=== PATIENT | male | born 1975 | race Caucasian/White ===

== ENCOUNTER 2016-10-13 12:35 | Emergency (ER) | payer BC ==
[~2016-10-13] VITALS: Wt 72.0 kg
[2016-10-13] MEDS ORDERED: KETOROLAC 60 MG INJ IM STA (13:17)
--- NOTE | 2016-10-13 14:33 | RADRPT ---
PROCEDURE: XR Knee. CLINICAL INDICATION: Trauma TECHNIQUE: Three views of the left knee are available for review. COMPARISON: None available FINDINGS: The medial and lateral femorotibial compartments are preserved, as is the patellofemoral compartment . There is no acute osseous abnormality, marginal erosion or evidence of fracture. Small joint effu jefe. IMPRESSION: 1. No acute osseous abnormality. 2. Small joint effusion. RPTAT: UU .Enrico Morataya MD, MD Date Time Electronically viewed and signed by .Enrico Morataya MD, MD on 10/13/2016 14:33 .d/
--- NOTE | 2016-10-13 14:34 | RADRPT ---
PROCEDURE: XR Shoulder. CLINICAL INDICATION: Shoulder pain TECHNIQUE: Three views of the right shoulder are available for review. COMPARISON: None available FINDINGS: The humeral head is located. Mild AC joint arthrosis. There is no acute osseous or articular abnor mality. No evidence for fracture. The visualized portions of the right lung are clear . IMPRESSION: 1. No acute osseous abnormality. 2. Mild AC joint arthrosis. RPTAT: UU .Enrico Morataya MD, MD Date Time Electronically viewed and signed by .Enrico Morataya MD, MD on 10/13/2016 14:34 .d/
--- NOTE | 2016-10-13 14:36 | RADRPT ---
PROCEDURE: XR Hand. CLINICAL INDICATION: Trauma TECHNIQUE: Three views of the right hand were obtained. COMPARISON: No prior studies are available for comparison. FINDINGS: There is a comminuted, minimally displaced fracture of the distal radius with articular surface invo lvement. There is minimal volar angulation of the distal radial articular surface. Mild distal rad ioulnar joint arthrosis. The remaining osseous structures are intact. Probable remote post-traumati c deformity of the fifth metacarpal base. IMPRESSION: 1. Minimally displaced, intra-articular distal radial fracture. RPTAT: UU .Enrico Morataya MD, Date Time Electronically viewed and signed by .Enrico Morataya MD, on 10/13/2016 14:36 .d/
--- NOTE | 2016-10-13 14:36 | RADRPT ---
PROCEDURE: XR Wrist. CLINICAL INDICATION: Trauma TECHNIQUE: AP, lateral and oblique views of the right wrist were performed. COMPARISON: No prior studies are available for comparison. FINDINGS: There is a comminuted, minimally displaced fracture of the distal radius with articular surface invo lvement. There is minimal volar angulation of the distal radial articular surface. Mild distal rad ioulnar joint arthrosis. The remaining osseous structures are intact. Probable remote post-traumati c deformity of the fifth metacarpal base. IMPRESSION: 1. Minimally displaced, intra-articular distal radial fracture. RPTAT: UU .Enrico Morataya MD, MD Date Time Electronically viewed and signed by .Enrico Morataya MD, on 10/13/2016 14:36 .d/
--- NOTE | 2016-10-13 14:37 | RADRPT ---
PROCEDURE: XR Chest. CLINICAL INDICATION: Trauma TECHNIQUE: Single frontal chest x-ray. COMPARISON: None. FINDINGS: There is no focal consolidation, pleural effusion or pneumothorax. The aorta and cardiac silhouette are within normal limits. The osseous structures are intact. IMPRESSION: 1. No acute infiltrate. RPTAT: UU .Enrico Morataya MD, MD Date Time Electronically viewed and signed by .Enrico Morataya MD, on 10/13/2016 14:37 .d/
[2016-10-13] MEDS ORDERED: OXYC-279 PO (15:11)
[2016-10-13] MEDS ORDERED: IBUP-1542 PO (15:11)
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
== END 2016-10-13 15:42 | disposition home or self-care (01) ==
LOC: FTE 12:35
DX: S52.571A Other intraarticular fracture of lower end of right radius, initial encounter for closed fracture (principal); M25.462 Effusion, left knee; R07.9 Chest pain, unspecified; V19.40XA Pedal cycle driver injured in collision with unspecified motor vehicles in traffic accident, initial encounter
CPT/HCPCS: 29125; 71010; 73030; 73110; 73130; 73562; 96372; 99284; J1885